=== PATIENT | male | born 1970 | race Two or more races ===

== ENCOUNTER 2023-11-06 13:41 | Inpatient (IN) | payer MEDICAID ==
--- NOTE | 2023-11-06 15:18 | ED ---
General Adult HPI - General Source: patient, family, RN notes reviewed Mode of arrival: ambulatory Limitations: no limitations <César Serrano - Last Filed: 11/06/23 16:16> - History of Present Illness -: year(s) Consistency: constant Improves with: none Worsens with: none Associated Symptoms: denies other symptoms Treatments Prior to Arrival: none <Felix Bravo - Last Filed: 11/06/23 18:03> - General Chief complaint: Psychiatric Symptoms Stated complaint: Mental health Time Seen by Provider: 11/06/23 14:53 - History of Present Illness Initial comments: Patient 53-year-old male presented to the emergency room today with a chief complaint of hallucinations. Patient does admit that he was placed in half-way for 21 days. He was on Suboxone he was being treated for withdrawal symptoms. He does have a history of bipolar. He states he was following with [facility]. He states his therapist is currently in the process of a move. Patient states he is not talked to his therapist in over a month. He does admit that while he was in half-way he started having some hallucinations. He states that they placed him in to a 23-hour confinement per day. He states that he got home today his fiance is at bedside who states that she has noticed some increased "twitches. States that seems like he is sometimes coherent and other times seems to space out. Patient does admit that he had some hallucinations. He gives an example that he knows that he is here in the hospital but he is thoughts that his fiance who is sitting next to him is gone out to dinner. He states he realizes needs hallucinations or not real when he stops to think about. Patient denies any suicidal or homicidal thoughts or plans. He denies any other complaints or any other symptoms. Patient denies any recent fever, chills, shortness of breath, chest pain, back pain, abdominal pain, nausea or vomiting, headaches or visual changes, or any other complaints. (César Serrano) This is a 53 male to ER for evaluation of psychiatric illness (Felix Bravo) - Related Data Home Medications Medication Instructions Recorded Confirmed Buprenorphine HCl/Naloxone HCl 0.5 - 1 film SL BID 11/06/23 11/06/23 [Suboxone 8 mg-2 mg Sl Film] Allergies Allergy/AdvReac Type Severity Reaction Status Date / Time No Known Allergies Allergy Verified 11/06/23 17:38 Review of Systems ROS Other: All systems not noted in ROS Statement are negative. <ZachCésar - Last Filed: 11/06/23 16:16> ROS Other: All systems not noted in ROS Statement are negative. <Felix Bravo - Last Filed: 11/06/23 18:03> ROS Statement: Those systems with pertinent positive or pertinent negative responses have been documented in the HPI. Past Medical History Past Medical History: No Reported History Past Surgical History: No Surgical Hx Reported Past Psychological History: No Psychological Hx Reported Smoking Status: Current some day smoker Past Drug Use History: Opiates <ZachCésar - Last Filed: 11/06/23 16:16> General Exam Limitations: no limitations <ZachCésar - Last Filed: 11/06/23 16:16> General appearance: alert, in no apparent distress Head exam: Present: atraumatic, normocephalic, normal inspection Eye exam: Present: normal appearance, PERRL, EOMI. Absent: scleral icterus, conjunctival injection, periorbital swelling ENT exam: Present: normal exam, mucous membranes moist Neck exam: Present: normal inspection. Absent: tenderness, meningismus, lymphadenopathy Respiratory exam: Present: normal lung sounds bilaterally. Absent: respiratory distress, wheezes, rales, rhonchi, stridor Cardiovascular Exam: Present: regular rate, normal rhythm, normal heart sounds. Absent: systolic murmur, diastolic murmur, rubs, gallop, clicks GI/Abdominal exam: Present: soft, normal bowel sounds. Absent: distended, tenderness, guarding, rebound, rigid Extremities exam: Present: normal inspection, full ROM, normal capillary refill. Absent: tenderness, pedal edema, joint swelling, calf tenderness Back exam: Present: normal inspection Neurological exam: Present: alert, oriented X3, CN II-XII intact Psychiatric exam: Present: normal affect, normal mood Skin exam: Present: warm, dry, intact, normal color. Absent: rash <Felix Bravo - Last Filed: 11/06/23 18:03> - General Exam Comments Initial Comments: General: The patient is awake and alert, in no distress, and does not appear acutely ill. Eye: Extra-ocular movements are intact. There is normal conjunctiva bilaterally . No signs of icterus. Ears, nose, mouth and throat: There are moist mucous membranes and no oral lesions. Neck: The neck is supple, there is no tenderness or JVD. Cardiovascular: There is a regular rate and rhythm. No murmur, rub or gallop is appreciated. Respiratory: Lungs are clear to auscultation, respirations are non-labored, breath sounds are equal. Musculoskeletal: Normal ROM, no tenderness. Neurological: A&O x 3. CN II-XII intact, There are no obvious motor or sensory deficits. Coordination appears grossly intact. Speech is normal. Skin: Skin is warm and dry and no rashes or lesions are noted. Psychiatric: Cooperative, appropriate mood & affect, normal judgment. (César Serrano) Course <Felix Bravo - Last Filed: 11/06/23 18:03> Vital Signs 11/06/23 13:52 Temperature 98.2 F Pulse Rate 90 Respiratory 16 Rate Blood Pressure 122/77 O2 Sat by Pulse 97 Oximetry - Reevaluation(s) Reevaluation #1: 11/06/23 18:02 Medical records reviewed (Felix Bravo) Reevaluation #2: 11/06/23 18:03 Medical clear for psychiatric evaluation (Felix Bravo) Medical Decision Making <César Serrano - Last Filed: 11/06/23 16:16> <Felix Bravo - Last Filed: 11/06/23 18:03> - Medical Decision Making History was obtained from patient/Nurse/Family/ Initial assessment and chief complaint: Hallucinations needing psychiatric evaluation Chronic conditions affecting care: Bipolar Social determinants affecting care: None 1600: 53-year-old male presented to the emergency room today with a chief complaint of having hallucinations. Patient presented today wanting psychiatric evaluation. He does admit that he does follow with [facility]. He has not seen his therapist in over a month. States prior to going to half-way he was not on any meds for his bipolar. He states he was taking Suboxone. Patient has been medically cleared and currently awaiting psychiatric eval. discussed and signed out to attending physician Dr. Bravo, at this time. (César Serrano) 53 male will be admitted for psychiatric evaluation (Felix Bravo) - Lab Data Lab Results 11/06/23 Range/Units 15:32 Urine Opiates Screen Not Detected (NotDetected) Ur Oxycodone Screen Not Detected (NotDetected) Urine Methadone Screen Not Detected (NotDetected) Ur Barbiturates Screen Not Detected (NotDetected) U Tricyclic Antidepress Not Detected (NotDetected) Ur Phencyclidine Scrn Not Detected (NotDetected) Ur Amphetamines Screen Not Detected (NotDetected) U Methamphetamines Scrn Not Detected (NotDetected) U Benzodiazepines Scrn Not Detected (NotDetected) Urine Cocaine Screen Not Detected (NotDetected) U Marijuana (THC) Screen Detected H (NotDetected) Disposition <César Serrano - Last Filed: 11/06/23 16:16> Is patient prescribed a controlled substance at d/c from ED?: No <Felix Bravo - Last Filed: 11/06/23 18:03> Clinical Impression: Bipolar disorder, Psychosis, Acute psychosis Disposition: TRANSFER TO PSYCH HOSP/UNIT Condition: Fair Referrals: Bird Sosa MD [Primary Care Provider] - 1-2 days
[2023-11-06 16:11] LABS: Amphetamine Screen,Urine Not Detected (NotDetected); Barbiturate Screen,Urine Not Detected (NotDetected); Benzodiazepines Screen,Urine Not Detected (NotDetected); Cocaine Screen,Urine Not Detected (NotDetected); Methadone Screen, Urine Not Detected (NotDetected); Opiate Screen,Urine Not Detected (NotDetected); Oxycodone Screen, Urine Not Detected (NotDetected); Phencyclidine Screen,Urine Not Detected (NotDetected); Tricyclic Antidepressant,Urine Not Detected (NotDetected); Urn Cannabinoid Scrn Detected (NotDetected)
[2023-11-06] MEDS ORDERED: LORazepam 2 MG/ML INJ IM PRN (22:14)
[2023-11-06] MEDS ORDERED: HALOPERIDOL LACTATE 5 MG/ML 1 ML VIAL IM PRN (22:14)
[2023-11-06] MEDS ORDERED: MAG HYDROX/AL HYDROX/SIMETH 30 ML CUP PO PRN (22:14)
[2023-11-06] MEDS ORDERED: MAGNESIUM HYDROXIDE 2,400 MG/30 ML CUP PO PRN (22:14)
[2023-11-06] MEDS: haloperidoL 5 MG TAB PO PRN (23:29)
[2023-11-06] MEDS: LORazepam 1 MG TAB PO PRN (23:29)
[2023-11-07 08:00] LABS: Amorphous Sediment,Urine Many /hpf; Appearance,Urine Turbid (Clear); Bilirubin,Urine Negative (Negative); Blood,Urine Negative (Negative); Calcium Oxalate Crystals,Urine Occasional /hpf; Color,Urine Yellow; Glucose,Urine (UA) Negative (Negative); Ketones,Urine Negative (Negative); Leukocyte Esterase,Urine Negative (Negative); Mucus,Urine Many /hpf; Nitrite,Urine Negative (Negative); Protein,Urine Trace (Negative); Urobilinogen,Urine <2.0 mg/dL (<2.0); WBC,Urine 1 /hpf (0-5)
[2023-11-07 08:13] LABS: ALT 24 U/L (4-49); AST 19 U/L (17-59); African American GFR (CKD) >90 (>60 ml/min/1.73 sqM); Albumin 3.3 g/dL (3.5-5.0); Alkaline Phosphatase 83 U/L (38-126); Anion Gap 6 mmol/L; Blood Urea Nitrogen 9 mg/dL (9-20); Calcium 8.3 mg/dL (8.4-10.2); Carbon Dioxide 28 mmol/L (22-30); Chloride 106 mmol/L (98-107); Glucose 98 mg/dL (74-99); Non-African American GFR(CKD) >90 (>60 ml/min/1.73 sqM); Potassium 3.4 mmol/L (3.5-5.1); Sodium 140 mmol/L (137-145); Total Bilirubin 0.5 mg/dL (0.2-1.3); Total Protein 6.2 g/dL (6.3-8.2)
[2023-11-07 08:18] LABS: Basophils % (A) 1 %; Eosinophils % (A) 0 %; HCT 37.2 % (39.0-53.0); HGB 12.7 gm/dL (13.0-17.5); Lymphocytes # (A) 2.9 k/uL (1.0-4.8); Lymphocytes % (A) 36 %; MCH 29.1 pg (25.0-35.0); MCHC 34.1 g/dL (31.0-37.0); MCV 85.5 fL (80.0-100.0); Mean Platelet Volume 7.4; Monocytes # (A) 0.5 k/uL (0-1.0); Monocytes % (A) 6 %; Neutrophils # (A) 4.4 k/uL (1.3-7.7); Neutrophils % (A) 56 %; Platelet Count 433 k/uL (150-450); RBC 4.35 m/uL (4.30-5.90); RDW 13.3 % (11.5-15.5); WBC 7.9 k/uL (3.8-10.6)
[2023-11-07] MEDS: ACETAMINOPHEN TAB 325 MG TAB PO PRN (09:30)
[2023-11-07] MEDS: NICOTINE 14MG/24HR PATCH TRANSDERM SCH (09:37)
--- NOTE | 2023-11-07 13:16 | P.HP ---
Psychiatric H&P - . H&P Date: 11/07/23 History & Physical: Allergies Allergy/AdvReac Type Severity Reaction Status Date / Time No Known Allergies Allergy Verified 11/06/23 17:38 Vital Signs Temp 98.0 F 11/06/23 23:20 Pulse 88 11/07/23 09:38 Resp 20 11/07/23 09:38 BP 142/105 11/07/23 09:38 Pulse Ox 98 11/06/23 23:20 FiO2 Intake & Output 11/06/23 11/07/23 11/07/23 18:59 06:59 18:59 Weight 86.183 kg 79.577 kg Laboratory Last Values WBC 7.9 k/uL (3.8-10.6) 11/07/23 07:45 RBC 4.35 m/uL (4.30-5.90) 11/07/23 07:45 Hgb 12.7 gm/dL (13.0-17.5) L 11/07/23 07:45 Hct 37.2 % (39.0-53.0) L 11/07/23 07:45 MCV 85.5 fL (80.0-100.0) 11/07/23 07:45 MCH 29.1 pg (25.0-35.0) 11/07/23 07:45 MCHC 34.1 g/dL (31.0-37.0) 11/07/23 07:45 RDW 13.3 % (11.5-15.5) 11/07/23 07:45 Plt Count 433 k/uL (150-450) 11/07/23 07:45 MPV 7.4 11/07/23 07:45 Neutrophils % 56 % 11/07/23 07:45 Lymphocytes % 36 % 11/07/23 07:45 Monocytes % 6 % 11/07/23 07:45 Eosinophils % 0 % 11/07/23 07:45 Basophils % 1 % 11/07/23 07:45 Neutrophils # 4.4 k/uL (1.3-7.7) 11/07/23 07:45 Lymphocytes # 2.9 k/uL (1.0-4.8) 11/07/23 07:45 Monocytes # 0.5 k/uL (0-1.0) 11/07/23 07:45 Eosinophils # 0.0 k/uL (0-0.7) 11/07/23 07:45 Basophils # 0.0 k/uL (0-0.2) 11/07/23 07:45 Sodium 140 mmol/L (137-145) 11/07/23 07:45 Potassium 3.4 mmol/L (3.5-5.1) L 11/07/23 07:45 Chloride 106 mmol/L (98-107) 11/07/23 07:45 Carbon Dioxide 28 mmol/L (22-30) 11/07/23 07:45 Anion Gap 6 mmol/L 11/07/23 07:45 BUN 9 mg/dL (9-20) 11/07/23 07:45 Creatinine 0.57 mg/dL (0.66-1.25) L 11/07/23 07:45 Est GFR (CKD-EPI)AfAm >90 (>60 ml/min/1.73 sqM) 11/07/23 07:45 Est GFR (CKD-EPI)NonAf >90 (>60 ml/min/1.73 sqM) 11/07/23 07:45 Glucose 98 mg/dL (74-99) 11/07/23 07:45 Calcium 8.3 mg/dL (8.4-10.2) L 11/07/23 07:45 Total Bilirubin 0.5 mg/dL (0.2-1.3) 11/07/23 07:45 AST 19 U/L (17-59) 11/07/23 07:45 ALT 24 U/L (4-49) 11/07/23 07:45 Alkaline Phosphatase 83 U/L (38-126) 11/07/23 07:45 Total Protein 6.2 g/dL (6.3-8.2) L 11/07/23 07:45 Albumin 3.3 g/dL (3.5-5.0) L 11/07/23 07:45 TSH 0.967 mIU/L (0.465-4.680) 11/07/23 07:45 Urine Color Yellow 11/06/23 15:32 Urine Appearance Turbid (Clear) 11/06/23 15:32 Urine pH 5.0 (5.0-8.0) 11/06/23 15:32 Ur Specific [place] 1.030 (1.001-1.035) 11/06/23 15:32 Urine Protein Trace (Negative) H 11/06/23 15:32 Urine Glucose (UA) Negative (Negative) 11/06/23 15:32 Urine Ketones Negative (Negative) 11/06/23 15:32 Urine Blood Negative (Negative) 11/06/23 15:32 Urine Nitrite Negative (Negative) 11/06/23 15:32 Urine Bilirubin Negative (Negative) 11/06/23 15:32 Urine Urobilinogen <2.0 mg/dL (<2.0) 11/06/23 15:32 Ur Leukocyte Esterase Negative (Negative) 11/06/23 15:32 Urine WBC 1 /hpf (0-5) 11/06/23 15:32 Calcium Oxalate Crystal Occasional /hpf (None) H 11/06/23 15:32 Amorphous Sediment Many /hpf (None) H 11/06/23 15:32 Urine Mucus Many /hpf (None) H 11/06/23 15:32 Urine Opiates Screen Not Detected (NotDetected) 11/06/23 15:32 Ur Oxycodone Screen Not Detected (NotDetected) 11/06/23 15:32 Urine Methadone Screen Not Detected (NotDetected) 11/06/23 15:32 Ur Barbiturates Screen Not Detected (NotDetected) 11/06/23 15:32 U Tricyclic Antidepress Not Detected (NotDetected) 11/06/23 15:32 Ur Phencyclidine Scrn Not Detected (NotDetected) 11/06/23 15:32 Ur Amphetamines Screen Not Detected (NotDetected) 11/06/23 15:32 U Methamphetamines Scrn Not Detected (NotDetected) 11/06/23 15:32 U Benzodiazepines Scrn Not Detected (NotDetected) 11/06/23 15:32 Urine Cocaine Screen Not Detected (NotDetected) 11/06/23 15:32 U Marijuana (THC) Screen Detected (NotDetected) H 11/06/23 15:32 SARS-CoV-2 (PCR) Not Detected (Not Detectd) 11/06/23 21:12 11/07/23 11:36 IDENTIFYING DATA: Patient is a 53 year old white male, appears stated age. Lives with sister in a house. HPI: Patient presented to the hospital 11/06 for hallucinations. Pt reports hallucinations began while in alf. Pt was recently released after 21 days. Pt claims to be prescribed Suboxone. Pt reports history of bipolar disorder. UDS positive for cannabis. Patient was seen today in the hallway sitting against the wall. Patient was initially directable to speak to marketing copywriter in the office. Patient answered only some questions, he correctly knew his name, he believed that he was in "rehab" in [place]. He believes that today was November 08, 2022. He appears to be fairly confused during the interview. He closes eyes several times and was speaking to himself. He was difficult to redirect during the conversation. Very poor insight poor judgment. He was bizarre and disorganized in his thoughts. Thought blocking. Patient denies any suicidal or homicidal ideations intent or plan. At this time patient denies any auditory or visual hallucinations. Patient was positive for marijuana in his drug screen. He was responding to internal stimuli. Patient was unable to give further past psychiatric history or social history due to his mental status. PAST PSYCHIATRIC HISTORY: Patient states that he has a history of bipolar disorder. Prior hospitalizations unknown. PMH: As per ER note. ALLERGIES: as per EMR CHEMICAL DEPENDENCY HISTORY: as per HPI FAMILY PSYCHIATRIC/SUBSTANCE USE HISTORY: Unable to obtain SOCIAL HISTORY: Unable to obtain MENTAL STATUS EXAM: General Appearance: Patient appears to be stated age is alert, directable, and attempts to cooperate. Patient appears to have disheveled hygiene and grooming. Behavior: Patient is seated with some agitated behavior. Appears to be confused and difficult to redirect Speech: Patient's speech is hesitant and soft. Mood/Affect: Patient reports their mood is affect is congruent and constricted. Suicidality/Homicidality: Patient denies having any homicidal ideation intent or plan. Denies any suicidal ideations intent or plan. Perceptions: Patient denies any visual hallucinations and denies any auditory hallucinations Though content/process: cocreate, vague, bizarre Memory and concentration: AOX1, does not know today's date or year, does not know where he is, he only knows his name, fairly confused, unable to follow most directions. Judgment and insight: poor STRENGTHS/WEAKNESSES: strength is that patient is resilient. Weakness is that patient has poor judgment and is impulsive INTELLECT: Average IMPRESSIONS: psychosis unspecified, r/o secondary to substance withdrawal Cannabis use disorder opioid use disorder, currently on maintenance therapy Rule out alcohol use disorder/withdrawal PLAN: -Patient is admitted under involuntary status to MHU for stabilization of psychiatric symptoms and safety. Patient has not signed adult voluntary form and medication consent and is placed in patient's chart. A second certification was completed and along with petition will be filed for court. -Medications : -Begin Haldol and Ativan PRN for agitation/aggression -Begin Rispridol 1mg qhs for psychosis -CIWA protocol with Ativan PRN for ETOH withdrawal -Will resume pt's home dosage of Suboxone for opioid dependence. -Internal Medicine consult to perform medical evaluation and physical. -SW on board for discharge planning. Encourage patient to participate in groups to work on coping skills. Will await deferral and court date. 11/07/23 12:07 11/07/23 13:11
[2023-11-07] MEDS: BUPRENORPHINE-NALOX 8-2 MG TAB 1 EACH TAB.SUBL SL SCH (14:20)
[2023-11-07] MEDS: haloperidoL 5 MG TAB PO ONE (14:20)
[2023-11-07] MEDS ORDERED: LORazepam 1 MG TAB PO PRN ×2 (16:00)
[2023-11-07] MEDS: risperiDONE 1 MG TAB PO SCH (21:18)
--- NOTE | 2023-11-08 12:10 | P.PN ---
Progress Note - Text Progress Note Date: 11/08/23 Interval History: Patient was seen today wandering the hallways and was agreeable to speak to wr iter in the office today. he states that he does not remember much from yesterday. explained that he was arrested about a week ago for shoplifting and also had a warrant out for arrest for driving with a suspended license. claims that at [facility] he began hearing voices and "seeing things" while in [facility]. Patient appeared to be more coherent today, more logical. He did appear to be fairly frustrated that he was in the hospital and was fairly focused on discharge. Welt Slasher attempted to explain the patient that he is currently involuntarily admitted and will need to await a deferral meeting with his transactional attorney, patient began being upset about this and asked marketing copywriter several times to explain to him why he is currently involuntary. He states that "I brought myself in here". Patient does not recall acting bizarre, psychotic and confused yesterday and needed to be redirected and escorted from the office. He has poor insight and judgment, has been taking his medications however. States that he is doing a bit better with regards to his mood and anxiety. He claims that he slept fairly last night. At this time he is denying any changes in his appetite. Denies any auditory or visual hallucinations. Denies any suicidal homicidal ideations intent or plan. MENTAL STATUS EXAM: General Appearance: Patient appears to be stated age is alert, directable, and attempts to cooperate. Patient appears to have oddly improving hygiene and grooming. Behavior: Patient is seated, Appears to be less confused today, somewhat argumentative Speech: Patient's speech is irritable tone, direct, fluent Mood/Affect: Patient reports their mood is mildly improving, affect is congruent and constricted. Suicidality/Homicidality: Patient denies having any homicidal ideation intent or plan. Denies any suicidal ideations intent or plan. Perceptions: Patient denies any visual hallucinations and denies any auditory hallucinations Though content/process: cocreate, vague, focused on discharge, minimizing his need for hospitalization. Memory and concentration: AOX3, improved attention span. Judgment and insight: poor, improving mildly IMPRESSIONS: psychosis unspecified, r/o secondary to substance withdrawal Cannabis use disorder opioid use disorder, currently on maintenance therapy benzodiazepine use disorder, in withdrawal PLAN: -Patient is admitted under involuntary status to MHU for stabilization of psychiatric symptoms and safety. Patient has not signed adult voluntary form and medication consent and is placed in patient's chart. -Medications : -Haldol and Ativan PRN for agitation/aggression -increase Rispridol 1mg bid for psychosis -CIWA protocol with Ativan PRN for BZD withdrawal -continue home dosage of Suboxone for opioid dependence -Internal Medicine consult to perform medical evaluation and physical -SW on board for discharge planning. Encourage patient to participate in groups to work on coping skills. Will await deferral and court date.
[2023-11-08] MEDS: risperiDONE 1 MG TAB PO SCH (12:55)
--- NOTE | 2023-11-09 11:36 | P.PN ---
Progress Note - Text Progress Note Date: 11/09/23 Interval History: Patient was seen today in his room and wandering hallway. Patient was agreeable to speak to video game script writer today. He appeared to be more calm today however continues to state that he does not understand why he needs to speak to an asbestos surveyor. He was asking about getting a potential CT scan of his head because of a previous TBI. He states that his mood is improving, continues to have anxiety during the day. States that he has been trying to keep busy on the unit. He claims that he was having difficulty sleeping last night, continues to hear voices at times however states that they are improving. He has poor insight and judgment, has been taking his medications however, this is improving. At this time he is denying any changes in his appetite. Denies any auditory or visual hallucinations. Denies any suicidal homicidal ideations intent or plan. MENTAL STATUS EXAM: General Appearance: Patient appears to be stated age is alert, directable, and attempts to cooperate. Patient appears to have mildly improving hygiene and grooming. Behavior: Patient is seated, Appears to be more directable and cooperative today Speech: Patient's speech is irritable, fluent Mood/Affect: Patient reports their mood is mildly improving, affect is congruent and constricted. Improving mildly Suicidality/Homicidality: Patient denies having any homicidal ideation intent or plan. Denies any suicidal ideations intent or plan. Perceptions: Patient denies any visual hallucinations and claims that the auditory hallucinations have been improving Though content/process: cocreate, vague, focused on discharge, minimizing his need for hospitalization. Memory and concentration: AOX3, improved attention span. Judgment and insight: poor, improving mildly IMPRESSIONS: psychosis unspecified, r/o secondary to substance withdrawal Cannabis use disorder opioid use disorder, currently on maintenance therapy benzodiazepine use disorder, in withdrawal PLAN: -Patient is admitted under involuntary status to [facility]HU for stabilization of psychiatric symptoms and safety. Patient has not signed adult voluntary form and medication consent and is placed in patient's chart. -Medications : -Haldol and Ativan PRN for agitation/aggression -Rispridol 1mg bid for psychosis -Added Remeron 15 mg nightly for sleep/mood/anxiety. -CIWA protocol with Ativan PRN for BZD withdrawal, likely discontinue tomorrow if patient is doing well. -continue home dosage of Suboxone for opioid dependence -Internal Medicine consult to perform medical evaluation and physical -SW on board for discharge planning. Encourage patient to participate in groups to work on coping skills. Will await deferral and court date. Possible discharge Friday versus Friday if patient is improving and has deferred.
[2023-11-09] MEDS: MIRTAZAPINE 15 MG TAB PO SCH (20:11)
--- NOTE | 2023-11-09 23:39 | P.MDCNMH ---
History of Present Illness H&P Date: 11/09/23 Chief Complaint: Medical evaluation 54-year-old male with polysubstance abuse Patient coming in for evaluation secondary to hallucinations Patient admits to being in custodial and lost to follow-up with his therapist, he stopped using his drugs and he believes he was withdrawing and going into hallucinations. Upon release from custodial his family was concerned regarding his behavior and decided to bring him in for evaluation. His hallucinations patient describes them as thoughts and visual denies being suicidal or homicidal. He does not realize that these are hallucinations until someone calls him out about them Patient otherwise denies any headache visual changes hearing changes denies any focal neurodeficits denies any head injury denies any chest pain trouble breat andressa denies any fevers chills coughing is feeling fine otherwise. she denies any fever, chills, cough, sore throat, chest pain , trouble breathing , nausea , vomiting, abd pain , changes in urinary or bowel habits. she denies tobacco smoking, she claims that she quit meth 3 months ago , and alcohol 1 year. review of systems Pertinent positives as noted in HPI. All other systems were reviewed and are negative on exam Constitutional: No acute distress, conversant, pleasant Eyes: Anicteric sclerae, moist conjunctiva, Pupils equal round reactive to light ENMT: NC/AT Oropharynx clear, no erythema, or exudates Lungs: Clear to auscultation Clear to percussion Normal respiratory effort, no accessory muscle use Cardiovascular: Heart regular in rate and rhythm, No murmurs, gallops, or rubs No peripheral edema Abdominal: Soft Nontender, no guarding, rebound or rigidity Abdomen moving with respiration Normoactive bowel sounds Extremities: No digital cyanosis No clubbing Pedal pulses intact and symmetrical Radial pulses intact and symmetrical No calf tenderness Psychiatric: Alert and oriented to person, place and time Appropriate affect fair judgement Neuro Muscles Strength 5/5 in all 4 extremities Past Medical History Past Medical History: No Reported History History of Any Multi-Drug Resistant Organisms: None Reported Past Surgical History: Orthopedic Surgery Additional Past Surgical History / Comment(s): Hx R arm surgery Past Anesthesia/Blood Transfusion Reactions: No Reported Reaction Smoking Status: Current some day smoker - Past Family History Mother Family Medical History: Cancer Additional Family Medical History / Comment(s): Hx Breast cancer Medications and Allergies Home Medications Medication Instructions Recorded Confirmed Type Buprenorphine HCl/Naloxone HCl 0.5 - 1 film SL BID 11/06/23 11/06/23 History [Suboxone 8 mg-2 mg Sl Film] Allergies Allergy/AdvReac Type Severity Reaction Status Date / Time No Known Allergies Allergy Verified 11/06/23 17:38 Physical Exam Vitals: Vital Signs Pulse BP 11/09/23 06:18 98 122/73 Intake and Output 11/09/23 11/09/23 11/10/23 14:59 22:59 06:59 Other: Weight 82.6 kg Cranial Nerve Examination - Cranial Nerves Cranial Nerve II- Optic: Intact Cranial Nerve III- Oculomotor: Intact Cranial Nerve IV- Trochlear: Intact Cranial Nerve V- Trigeminal: Intact Cranial Nerve - Abducens: Intact Cranial Nerve VII- Facial: Intact Cranial Nerve VIII- Auditory: Intact Cranial Nerve IX- Glossopharyngeal: Intact Cranial Nerve X- Vagus: Intact Cranial Nerve XI- Accessory: Intact Cranial Nerve XII- Hypoglossal: Intact Results CBC & Chem 7: 11/07/23 07:45 11/07/23 07:45 Assessment and Plan Assessment: Hallucinations Polysubstance abuse Bipolar disorder Management per psych Stable from medical standpoint blood work reviewed showing white count 7.9 hemoglobin 12.7 Sodium 140 potassium 3.4 BUN 9 creatinine 0.5 Thank you for this consultation
--- NOTE | 2023-11-10 10:28 | P.PN ---
Progress Note - Text Progress Note Date: 11/10/23 Interval History: Patient was seen today in his room. Patient was agreeable to speak to greeting card writer today. Patient claims that he is doing a bit better. He claims that his mood and anxiety have been improving. He continues to minimize most of his symptoms and mainly focused on discharge. He has been taking his medications, states that he slept about 5 or 6 hours last night. We spoke about increasing the Remeron. He continues to have somewhat superficial insight about his drug use and states that he might consider rehab. Not been going to many groups. States that he has been trying to keep busy on the unit. States that he is not hearing voices today. Claims that the respite all has been helping with his anxiety. At this time he is denying any changes in his appetite. Denies any auditory or visual hallucinations. Denies any suicidal homicidal ideations intent or plan. MENTAL STATUS EXAM: General Appearance: Patient appears to be stated age is alert, directable, and attempts to cooperate. Patient appears to have mildly improving hygiene and grooming. Behavior: Patient is seated, Appears to be more directable and cooperative today, less irritable. Speech: Patient's speech is less irritable, fluent Mood/Affect: Patient reports their mood is mildly improving, affect is congruent and constricted. Improving mildly Suicidality/Homicidality: Patient denies having any homicidal ideation intent or plan. Denies any suicidal ideations intent or plan. Perceptions: Patient denies any visual hallucinations and denies any auditory hallucinations Though content/process: vague, focused on discharge, more goal oriented today Memory and concentration: AOX3, improved attention span. Judgment and insight: improving mildly IMPRESSIONS: psychosis unspecified, r/o secondary to substance withdrawal Cannabis use disorder opioid use disorder, currently on maintenance therapy benzodiazepine use disorder, in withdrawal PLAN: -Patient is admitted under involuntary status to MHU for stabilization of psychiatric symptoms and safety. Patient has not signed adult voluntary form and medication consent and is placed in patient's chart. -Medications : -Haldol and Ativan PRN for agitation/aggression -Rispridol 1mg bid for psychosis -Increased Remeron 30 mg nightly for sleep/mood/anxiety. -continue home dosage of Suboxone for opioid dependence -SW on board for discharge planning. Encourage patient to participate in groups to work on coping skills. Will await deferral and court date. Possible discharge Friday versus Friday if patient is improving and has deferred.
[2023-11-10] MEDS: MIRTAZAPINE 15 MG TAB PO SCH (20:49)
--- NOTE | 2023-11-11 10:04 | P.PN ---
Progress Note - Text Progress Note Date: 11/11/23 Interval History: Patient was seen today in the hallway, and agreeable to speak with television script writer in the office. Patient states that he is doing a better. He claims that his mood and anxiety have been improving. He states that he deferred with his grade and center marker yesterday, and agreeable to the treatment plan. He has been taking his medications, states that he slept well last night. He is going to groups. States that he has been trying to keep busy on the unit. States that he is not hearing voices today. Denies any side effects from the medication. At this time he is denying any changes in his appetite. Spoke with patient about d/c, and explained that he may be discharged tomorrow if he continues to improve. Denies any auditory or visual hallucinations. Denies any suicidal homicidal ideations intent or plan. MENTAL STATUS EXAM: General Appearance: Patient appears to be stated age is alert, directable, and attempts to cooperate. Patient appears to have mildly improving hygiene and grooming. Behavior: Patient is seated, Appears to be more directable and cooperative Speech: Patient's speech is fluent and nonpressured Mood/Affect: Patient reports their mood is mildly improving, affect is congruent and constricted. Improving Suicidality/Homicidality: Patient denies having any homicidal ideation intent or plan. Denies any suicidal ideations intent or plan. Perceptions: Patient denies any visual hallucinations and denies any auditory hallucinations Though content/process:focused on discharge, more goal oriented today Memory and concentration: AOX3, improved attention span. Judgment and insight: improving mildly IMPRESSIONS: psychosis unspecified, r/o secondary to substance withdrawal Cannabis use disorder opioid use disorder, currently on maintenance therapy benzodiazepine use disorder, in withdrawal PLAN: -Patient is admitted under involuntary status to MHU for stabilization of psychiatric symptoms and safety. Patient has not signed adult voluntary form and medication consent and is placed in patient's chart. -Medications : Haldol and Ativan PRN for agitation/aggression, change Rispridol 2mg qhs for psychosis to avoid daytime sedation, Remeron 30 mg nightly for sleep/mood/anxiety. -continue home dosage of Suboxone for opioid dependence -SW on board for discharge planning. Encourage patient to participate in groups to work on coping skills. Patient deferred with grade and center marker. Likely discharge tomorrow if patient continues to improve.
[2023-11-11] MEDS: risperiDONE 2 MG TAB PO SCH (22:13)
[2023-11-12 07:35] VITALS: BP 145/74; PULSE 103; RESP 16; TEMP 98.2
--- NOTE | 2023-11-12 11:11 | P.DS ---
Providers Date of admission: 11/06/23 22:12 Expected date of discharge: 11/12/23 Attending physician: Jose R Cooney MD Primary care physician: Bird Sosa - Discharge Diagnosis(es) (1) Unspecified psychosis Current Visit: Yes Status: Acute Priority: High (2) Cannabis use disorder Current Visit: Yes Status: Acute Priority: Medium (3) Opioid use disorder Current Visit: Yes Status: Acute Priority: High (4) Benzodiazepine dependence Current Visit: Yes Status: Acute Priority: High Hospital Course: Admission HPI: Admission note was completed by typewriter assembly and parts inspector "Patient presented to the hospital 11/06 for hallucinations. Pt reports hallucinations began while in [facility]. Pt was recently released after 21 days. Pt claims to be prescribed Suboxone. Pt reports history of bipolar disorder. UDS positive for cannabis. Patient was seen today in the hallway sitting against the wall. Patient was initially directable to speak to typewriter assembly and parts inspector in the office. Patient answered only some questions, he correctly knew his name, he believed that he was in "rehab" in [place]. He believes that today was November 08, 2022. He appears to be fairly confused during the interview. He closes eyes several times and was speaking to himself. He was difficult to redirect during the conversation. Very poor insight poor judgment. He was bizarre and disorganized in his thoughts. Thought blocking. Patient denies any suicidal or homicidal ideations intent or plan. At this time patient denies any auditory or visual hallucinations. Patient was positive for marijuana in his drug screen. He was responding to internal stimuli." Hospital course: Upon admission to the unit patient was admitted involuntarily on a petition and certificate and a second certificate was completed and faxed with the courts. Patient ended up signing a deferral with the electrician helper automotive and agreeing to treatment. Patient got along well with other patients on the unit and followed unit protocol. Patient was compliant with the medications and denied any side effects throughout hospital course. Patient was started on Risperdal and increased to a dose of 2 mg nightly for psychosis/mood stabilization, Remeron 30 mg nightly for sleep/mood/anxiety. Patient was resumed back on his home dose of Suboxone and twice daily for opiate dependence. Patient was monitored closely with [facility] protocol and as needed Ativan for benzodiazepine withdrawal. Patient spoke of his stressors and engaged in therapy both group and individual. Patient was also seen by medical team for history and physical exam. Throughout the course of the hospitalization patient gradually improved with regards to mo od, anxiety, psychosis/hallucinations, sleep and returned back to their baseline level of functioning. On the day of discharge patient denied any suicidal or homicidal ideations intent or plan denied any auditory or visual hallucinations. Patient endorsed wanting to live for his health and family. The patient denied any access to guns or weapons. Patient denied any paranoia and did not endorse any delusions. Patient does have a significant history of substance abuse and was counseled on abstaining from all substances including alcohol and marijuana. Patient was offered however declined inpatient substance-abuse rehab. Patient elected to do outpatient substance use treatment program through [facility]. Patient was also counseled on the medications and need for regular compliance and was encouraged to follow-up with their outpatient appointment for mental health and also for primary care. Prior to discharge a family meeting will be arranged by social media community manager to answer any questions and ensure safety upon discharge. Mental status exam: General Appearance: Patient appears to be stated age is alert, pleasant, and cooperative. Patient is in no acute distress and has improved hygiene and grooming Behavior: Patient is calmly seated without any agitated behavior. Speech: Patient's speech is fluent and nonpressured. Mood/Affect: Patient reports their mood is "good", affect is congruent and euthymic. Suicidality/Homicidality: Patient denies having any suicidal or homicidal ideation intent or plan. Perceptions: Patient denies any auditory or visual hallucinations. Though content/process: There is no evidence of any delusional thought content and thought process is linear and goal-directed. Memory and concentration: AOX3, grossly intact for the purposes of this session. Can spell "WORLD" backwards correctly. Judgment and insight: Chronically poor, however has improved with guarded prognosis Impression: psychosis unspecified, r/o secondary to substance withdrawal Cannabis use disorder opioid use disorder, currently on maintenance therapy Rule out alcohol use disorder/withdrawal Plan: -Continue with discharge today as patient has improved and stabilized psychiatrically and is not currently an imminent threat to himself and/or others. Patient will remain at chronically elevated risk for harm to self and/or others due to his impulsivity and substance abuse. -Continue medications: Remeron 30 mg nightly for sleep/mood/anxiety, Risperdal 2 mg nightly for psychosis/mood stabilization. Can continue with home dose of Suboxone and twice daily for opiate dependence. -Patient was counseled on the need for medication compliance and appropriate follow-up at mental health and also primary care for medical issues. Patient verbalized understanding and agreed. -Social work to arrange for and conduct family meeting to ensure safety upon discharge and answer any questions/concerns. Social work also to arrange for patients follow up appointments with [facility] for psychiatric care along with follow up with primary care provider. -Patient counseled on abstaining from recreational drugs and marijuana and alcohol. Was informed/educated on the adverse effects on their physical and mental health. Patient verbally agreed and understood. Patient was offered substance abuse treatment however declined at this time. -Patient was instructed to return to the hospital or seek immediate medical care if their psychiatric or medical symptoms do worsen or reoccur. Allergies Allergy/AdvReac Type Severity Reaction Status Date / Time No Known Allergies Allergy Verified 11/06/23 17:38 Laboratory Results WBC 7.9 k/uL (3.8-10.6) 11/07/23 07:45 RBC 4.35 m/uL (4.30-5.90) 11/07/23 07:45 Hgb 12.7 gm/dL (13.0-17.5) L 11/07/23 07:45 Hct 37.2 % (39.0-53.0) L 11/07/23 07:45 MCV 85.5 fL (80.0-100.0) 11/07/23 07:45 MCH 29.1 pg (25.0-35.0) 11/07/23 07:45 MCHC 34.1 g/dL (31.0-37.0) 11/07/23 07:45 RDW 13.3 % (11.5-15.5) 11/07/23 07:45 Plt Count 433 k/uL (150-450) 11/07/23 07:45 MPV 7.4 11/07/23 07:45 Neutrophils % 56 % 11/07/23 07:45 Lymphocytes % 36 % 11/07/23 07:45 Monocytes % 6 % 11/07/23 07:45 Eosinophils % 0 % 11/07/23 07:45 Basophils % 1 % 11/07/23 07:45 Neutrophils # 4.4 k/uL (1.3-7.7) 11/07/23 07:45 Lymphocytes # 2.9 k/uL (1.0-4.8) 11/07/23 07:45 Monocytes # 0.5 k/uL (0-1.0) 11/07/23 07:45 Eosinophils # 0.0 k/uL (0-0.7) 11/07/23 07:45 Basophils # 0.0 k/uL (0-0.2) 11/07/23 07:45 Sodium 140 mmol/L (137-145) 11/07/23 07:45 Potassium 3.4 mmol/L (3.5-5.1) L 11/07/23 07:45 Chloride 106 mmol/L (98-107) 11/07/23 07:45 Carbon Dioxide 28 mmol/L (22-30) 11/07/23 07:45 Anion Gap 6 mmol/L 11/07/23 07:45 BUN 9 mg/dL (9-20) 11/07/23 07:45 Creatinine 0.57 mg/dL (0.66-1.25) L 11/07/23 07:45 Est GFR (CKD-EPI)AfAm >90 (>60 ml/min/1.73 sqM) 11/07/23 07:45 Est GFR (CKD-EPI)NonAf >90 (>60 ml/min/1.73 sqM) 11/07/23 07:45 Glucose 98 mg/dL (74-99) 11/07/23 07:45 Calcium 8.3 mg/dL (8.4-10.2) L 11/07/23 07:45 Total Bilirubin 0.5 mg/dL (0.2-1.3) 11/07/23 07:45 AST 19 U/L (17-59) 11/07/23 07:45 ALT 24 U/L (4-49) 11/07/23 07:45 Alkaline Phosphatase 83 U/L (38-126) 11/07/23 07:45 Total Protein 6.2 g/dL (6.3-8.2) L 11/07/23 07:45 Albumin 3.3 g/dL (3.5-5.0) L 11/07/23 07:45 TSH 0.967 mIU/L (0.465-4.680) 11/07/23 07:45 Urine Color Yellow 11/06/23 15:32 Urine Appearance Turbid (Clear) 11/06/23 15:32 Urine pH 5.0 (5.0-8.0) 11/06/23 15:32 Ur Specific [place] 1.030 (1.001-1.035) 11/06/23 15:32 Urine Protein Trace (Negative) H 11/06/23 15:32 Urine Glucose (UA) Negative (Negative) 11/06/23 15:32 Urine Ketones Negative (Negative) 11/06/23 15:32 Urine Blood Negative (Negative) 11/06/23 15:32 Urine Nitrite Negative (Negative) 11/06/23 15:32 Urine Bilirubin Negative (Negative) 11/06/23 15:32 Urine Urobilinogen <2.0 mg/dL (<2.0) 11/06/23 15:32 Ur Leukocyte Esterase Negative (Negative) 11/06/23 15:32 Urine WBC 1 /hpf (0-5) 11/06/23 15:32 Calcium Oxalate Crystal Occasional /hpf (None) H 11/06/23 15:32 Amorphous Sediment Many /hpf (None) H 11/06/23 15:32 Urine Mucus Many /hpf (None) H 11/06/23 15:32 Urine Opiates Screen Not Detected (NotDetected) 11/06/23 15:32 Ur Oxycodone Screen Not Detected (NotDetected) 11/06/23 15:32 Urine Methadone Screen Not Detected (NotDetected) 11/06/23 15:32 Ur Barbiturates Screen Not Detected (NotDetected) 11/06/23 15:32 U Tricyclic Antidepress Not Detected (NotDetected) 11/06/23 15:32 Ur Phencyclidine Scrn Not Detected (NotDetected) 11/06/23 15:32 Ur Amphetamines Screen Not Detected (NotDetected) 11/06/23 15:32 U Methamphetamines Scrn Not Detected (NotDetected) 11/06/23 15:32 U Benzodiazepines Scrn Not Detected (NotDetected) 11/06/23 15:32 Urine Cocaine Screen Not Detected (NotDetected) 11/06/23 15:32 U Marijuana (THC) Screen Detected (NotDetected) H 11/06/23 15:32 SARS-CoV-2 (PCR) Not Detected (Not Detectd) 11/06/23 21:12 Vital Signs Temp 98.2 F 11/12/23 06:55 Pulse 103 H 11/12/23 06:55 Resp 16 11/12/23 06:55 BP 145/74 11/12/23 06:55 Pulse Ox 100 11/11/23 06:00 FiO2 Patient Condition at Discharge: Stable Plan - Discharge Summary Discharge Rx Participant: No New Discharge Prescriptions: New Mirtazapine [Remeron] 30 mg PO HS 30 Days #60 tab risperiDONE [RisperDAL] 2 mg PO HS 30 Days #30 tab Continue Buprenorphine HCl/Naloxone HCl [Suboxone 8 mg-2 mg Sl Film] 0.5 - 1 film SL BID Discharge Medication List Buprenorphine HCl/Naloxone HCl [Suboxone 8 mg-2 mg Sl Film] 0.5 - 1 film SL BID 11/06/23 [History] Mirtazapine [Remeron] 30 mg PO HS 30 Days #60 tab 11/12/23 [Rx] risperiDONE [RisperDAL] 2 mg PO HS 30 Days #30 tab 11/12/23 [Rx] Follow up Appointment(s)/Referral(s): Bird Sosa MD [Primary Care Provider] - 1-2 days Patient Instructions/Handouts: Psychotic Disorder (DC), Narcotic Use Disorder (DC) Activity/Diet/Wound Care/Special Instructions: Avoid the use of street drugs and alcohol. Take all medications as prescribed. When you are in need of refills on your medications, please contact your medical provider and/or outpatient psychiatrist/provider to have this done. Please go to your scheduled outpatient appointment for aftercare treatment. If symptoms return or become worse, call the crisis line at and/or go to the nearest emergency room for evaluation. National Suicide Hotline 988. Discharge Disposition: HOME SELF-CARE
== END 2023-11-12 11:48 | disposition home or self-care (01) | DRG 751 ==
LOC: EC 13:41 → 3MHU 22:12
PROVIDERS: ADMIT Psychiatry & Neurology Psychiatry; ATTEND Psychiatry & Neurology Psychiatry
DX: F29 Unspecified psychosis not due to a substance or known physiological condition (principal); F13.20 Sedative, hypnotic or anxiolytic dependence, uncomplicated; F12.10 Cannabis abuse, uncomplicated; F31.9 Bipolar disorder, unspecified; F11.20 Opioid dependence, uncomplicated; Z11.52 Encounter for screening for COVID-19; F41.9 Anxiety disorder, unspecified; F17.210 Nicotine dependence, cigarettes, uncomplicated; Z71.6 Tobacco abuse counseling; Z87.820 Personal history of traumatic brain injury; Z71.41 Alcohol abuse counseling and surveillance of alcoholic; Z71.51 Drug abuse counseling and surveillance of drug abuser
CPT/HCPCS: 80053; 80306; 81001; 82075; 84443; 85025; 87635; 99285

== ENCOUNTER 2024-05-06 06:47 | Emergency (ER) | payer OTHER ==
--- NOTE | 2024-05-06 07:01 | ED ---
Psych HPI - General Chief Complaint: Psychiatric Symptoms Stated Complaint: Mental Health Time Seen by Provider: 05/06/24 06:59 Source: patient, RN notes reviewed Mode of arrival: ambulatory Limitations: no limitations - History of Present Illness Initial Comments: This is a 54-year-old male who presents to the emergency department for psychiatric evaluation and withdrawal symptoms. States that he has been struggling to distinguish fantasy from reality and is hoping to get back on a medication regimen to straighten this out. He is also feeling very anxious. 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 About 2 months ago he was on Remeron and Risperdal, but does not believe that it was very effective. He does follow with [facility], but is hoping to see if he can start medication between now and his next appointment to help with his anxiety. Denies any suicidal or homicidal ideations. - Related Data Home Medications Medication Instructions Recorded Confirmed Buprenorphine HCl/Naloxone HCl 0.5 - 1 film SL BID 11/06/23 11/06/23 [Suboxone 8 mg-2 mg Sl Film] Previous Rx's Medication Instructions Recorded Mirtazapine [Remeron] 30 mg PO HS 30 Days #60 tab 11/12/23 risperiDONE [RisperDAL] 2 mg PO HS 30 Days #30 tab 11/12/23 hydrOXYzine HCL [Atarax] 50 - 100 mg PO Q4-6H PRN #20 tablet 05/06/24 Allergies Allergy/AdvReac Type Severity Reaction Status Date / Time No Known Allergies Allergy Verified 05/06/24 06:53 Review of Systems ROS Statement: Those systems with pertinent positive or pertinent negative responses have been documented in the HPI. ROS Other: All systems not noted in ROS Statement are negative. Past Medical History Past Medical History: No Reported History History of Any Multi-Drug Resistant Organisms: None Reported Past Surgical History: Orthopedic Surgery Additional Past Surgical History / Comment(s): Hx R arm surgery Past Anesthesia/Blood Transfusion Reactions: No Reported Reaction Past Psychological History: No Psychological Hx Reported Smoking Status: Current every day smoker Past Drug Use History: Methamphetamine, Prescription Drug Abuse - Past Family History Mother Family Medical History: Cancer Additional Family Medical History / Comment(s): Hx Breast cancer General Exam Limitations: no limitations General appearance: alert, in no apparent distress Head exam: Present: atraumatic, normocephalic, normal inspection Respiratory exam: Present: normal lung sounds bilaterally. Absent: respiratory distress, wheezes, rales, rhonchi, stridor Cardiovascular Exam: Present: regular rate, normal rhythm, normal heart sounds. Absent: systolic murmur, diastolic murmur, rubs, gallop, clicks Neurological exam: Present: alert, oriented X3, CN II-XII intact Psychiatric exam: Present: normal affect, normal mood Skin exam: Present: warm, dry, intact, normal color. Absent: rash Course Vital Signs 05/06/24 05/06/24 06:48 11:35 Temperature 98.5 F 98.0 F Pulse Rate 79 78 Respiratory 18 16 Rate Blood Pressure 119/74 134/83 O2 Sat by Pulse 100 98 Oximetry Medical Decision Making - Medical Decision Making This is a 54 year old male who presents to the emergency department for psychiatric evaluation. Was pt. sent in by a medical professional or institution? @ -No Did you speak to anyone other than the patient for history? @ -No Did you review nursing and triage notes? @ -Yes, and I agree, it is accurate with regards to the patient's symptoms. Were old charts reviewed? @ -No Differential Diagnosis? @ -Differential Mental Health Depression, anxiety, bipolar, psychosis, schizophrenia, borderline personality, situational depression, adjustment disorder, behavioral disorder, brain tumor, malingering, substance abuse, encephalopathy, medication reaction, dementia, hypothyroidism, degenerative neurologic disorder, lupus.... This is not meant to be all-inclusive list EKG interpreted by me (3pts min.)? @ -Not obtained X-rays interpreted by me (1pt min.)? @ -Not obtained CT interpreted by me (1pt min.)? @ -Not obtained U/S interpreted by me (1pt. min.)? @ -Not obtained What testing was considered but not performed? (CT, X-rays, U/S, labs)? Why? @ -None What meds were considered but not given? Why? @ -None Did you discuss the management of the patient with other professionals? @ -[place] with [facility] who advised that the patient does not meet criteria for inpatient psychiatric hospitalization. Advised anxiety medication such as hydroxyzine to help with the symptoms. Did you reconcile home meds? @ -No Was smoking cessation discussed for >3mins.? @ -No Was critical care preformed (if so, how long)? @ -No Were there social determinants of health that impacted care today? How? (Homelessness, low income, unemployed, alcoholism, drug addiction, transportation, low edu. Level, literacy, decrease access to med. care, alf, rehab)? @ -Drug addiction, contributing to worsening of his mental health problems. Was there de-escalation of care discussed even if they declined? (Discuss DNR or withdrawal of care, Hospice)? @ -No What co-morbidities impacted this encounter? (DM, HTN, Smoking, COPD, CAD, Cancer, CVA, Hep., AIDS, mental health diagnosis, sleep apnea, morbid obesity)? @ -Polysubstance abuse Was patient admitted / discharged? @ -Discharged. Patient's BAT was 0.0 and he was cleared for [facility] evaluation. Patient was evaluated by [facility] and they advised that he does not meet criteria for inpatient psychiatric hospitalization. Patient is requesting help with his anxiety to get him through until he can follow-up with [facility]. They advised something like hydroxyzine. Initial dose administered in the emergency department. Prescription was provided. Patient discharged home in stable condition. Case discussed with ED attending Dr. De La Paz. Return precautions reviewed in depth, the patient is instructed to return to the emergency department with any new, worsening, or concerning symptoms. Patient verbalized understanding. Undiagnosed new problem with uncertain prognosis? @ -None Drug Therapy requiring intensive monitoring for toxicity (Heparin, Nitro, Insulin, Cardizem)? @ -None Were any procedures done? @ -None Diagnosis/symptom? @ -Anxiety Acute, or Chronic, or Acute on Chronic? @ -Acute Uncomplicated (without systemic symptoms) or Complicated (systemic symptoms)? @ -Uncomplicated Side effects of treatment? @ -None Exacerbation, Progression, or Severe Exacerbation] @ -Not applicable Poses a threat to life or bodily function? @ -No Disposition Clinical Impression: Acute anxiety Disposition: HOME SELF-CARE Instructions (If sedation given, give patient instructions): Anxiety (ED) Additional Instructions: Return to the emergency department with any new, worsening, or concerning symptoms. Take the hydroxyzine as 1 to 2 tablets up to every 4-6 hours to help with anxiety. Follow-up with [facility]. Prescriptions: hydrOXYzine HCL [Atarax] 50 - 100 mg PO Q4-6H PRN #20 tablet PRN Reason: Anxiety Is patient prescribed a controlled substance at d/c from ED?: No Referrals: Bird Sosa MD [Primary Care Provider] - 1-2 days
[2024-05-06] MEDS: hydrOXYzine HCL 50 MG/ML 1 ML VIAL IM STA (10:26)
[2024-05-06 11:38] VITALS: BP 134/83; PULSE 78; RESP 16; TEMP 98
== END 2024-05-06 11:38 | disposition home or self-care (01) ==
LOC: EC 06:47
DX: F41.9 Anxiety disorder, unspecified (principal); F17.200 Nicotine dependence, unspecified, uncomplicated
CPT/HCPCS: 82075; 99284; 96372; J3410

== ENCOUNTER 2024-06-14 09:44 | Emergency (ER) | payer OTHER ==
[2024-06-14 09:48] VITALS: TEMP 98
--- NOTE | 2024-06-14 10:22 | ED ---
General Adult HPI - General Chief complaint: Shortness of Breath Stated complaint: SOB Time Seen by Provider: 06/14/24 10:21 Source: patient, RN notes reviewed Mode of arrival: ambulatory Limitations: no limitations - History of Present Illness Initial comments: 54-year-old male presented to the ER with a chief complaint of shortness of breath. Patient tested positive for COVID on 06-09-2024. Patient reports since then he has been feeling shortness of breath, coughing and a pounding headache. He is taking [id number] Tylenol with mild relief. Patient does occasionally vape. He denies any fevers, chest pain, peripheral edema, nausea, vomiting, abdominal pain. Patient does report diarrhea but is having a normal appetite. Patient has no other complaints. - Related Data Home Medications Medication Instructions Recorded Confirmed Buprenorphine HCl/Naloxone HCl 2 film SL DAILY 11/06/23 06/14/24 [Suboxone 8 mg-2 mg Sl Film] Allergies Allergy/AdvReac Type Severity Reaction Status Date / Time No Known Allergies Allergy Verified 06/14/24 12:10 Review of Systems ROS Statement: Those systems with pertinent positive or pertinent negative responses have been documented in the HPI. ROS Other: All systems not noted in ROS Statement are negative. Past Medical History Past Medical History: No Reported History History of Any Multi-Drug Resistant Organisms: None Reported Past Surgical History: Orthopedic Surgery Additional Past Surgical History / Comment(s): Hx R arm surgery Past Anesthesia/Blood Transfusion Reactions: No Reported Reaction Past Psychological History: No Psychological Hx Reported Smoking Status: Current every day smoker Past Drug Use History: Methamphetamine, Prescription Drug Abuse - Past Family History Mother Family Medical History: Cancer Additional Family Medical History / Comment(s): Hx Breast cancer General Exam Limitations: no limitations General appearance: alert, in no apparent distress Respiratory exam: Present: normal lung sounds bilaterally. Absent: respiratory distress, wheezes, rales, rhonchi, stridor Cardiovascular Exam: Present: regular rate, normal rhythm, normal heart sounds. Absent: systolic murmur, diastolic murmur, rubs, gallop, clicks GI/Abdominal exam: Present: soft, normal bowel sounds. Absent: distended, tenderness, guarding, rebound, rigid Extremities exam: Present: normal inspection, full ROM, normal capillary refill. Absent: tenderness, pedal edema, joint swelling, calf tenderness Neurological exam: Present: alert, oriented X3, CN II-XII intact Skin exam: Present: warm, dry, intact, normal color. Absent: rash Course Vital Signs 06/14/24 06/14/24 06/14/24 09:45 10:31 12:28 Temperature 98.0 F Pulse Rate 107 H 90 Respiratory 18 18 16 Rate Blood Pressure 120/78 160/85 O2 Sat by Pulse 98 98 Oximetry Medical Decision Making - Medical Decision Making Was pt. sent in by a medical professional or institution (, [place], BLOOD TESTER, urgent care, hospital, or jail...) When possible be specific @ -No Did you speak to anyone other than the patient for history (EMS, parent, family, police, friend...)? What history was obtained from this source @ -No Did you review nursing and triage notes (agree or disagree)? Why? @ -I reviewed and agree with nursing and triage notes Were old charts reviewed (outside hosp., previous admission, EMS record, old EKG, old radiological studies, urgent care reports/EKG's, jail records)? Report findings @ -No old charts were reviewed Differential Diagnosis (chest pain, altered mental status, abdominal pain women, abdominal pain men, vaginal bleeding, weakness, fever, dyspnea, syncope, headache, dizziness, GI bleed, back pain, seizure, CVA, palpatations, mental health, musculoskeletal)? @ -COVID, RSV, influenza, viral sinusitis, pneumonia this list is not meant to be all-inclusive EKG interpreted by me (3pts min.). @ -[None X-rays interpreted by me (1pt min.). @ -Chest x-ray interpreted by me negative for acute cardiopulmonary process. CT interpreted by me (1pt min.). @ -None done U/S interpreted by me (1pt. min.). @ -None done What testing was considered but not performed or refused? (CT, X-rays, U/S, labs)? Why? @ -None What meds were considered but not given or refused? Why? @ -None Did you discuss the management of the patient with other professionals (professionals i.e. [place] Mor[facility], BLOOD TESTER, lab, RT, psych nurse, social sciences chair, automatic clipper, teacher, strike warfare/missile systems officer, complex case manager)? Give summary @ -No Was smoking cessation discussed for >3mins.? @ -I discussed smoking cessation for greater than 3 minutes. The risk of smoking were discussed with the patient including but not limited to risks of cancer, stroke, coronary artery disease and COPD. Also discussed with patient were multiple methods of quitting smoking. Lastly we discussed the financial cost of smoking. Was critical care preformed (if so, how long)? @ -No Were there social determinants of health that impacted care today? How? ([place]ke elessness, low income, unemployed, alcoholism, drug addiction, transportation, low edu. Level, literacy, decrease access to med. care, group home, rehab)? @ -No Was there de-escalation of care discussed even if they declined (Discuss DNR or withdrawal of care, Hospice)? DNR status @ -No What co-morbidities impacted this encounter? (DM, HTN, Smoking, COPD, CAD, Cancer, CVA, ARF, Chemo, Hep., AIDS, mental health diagnosis, sleep apnea, morbid obesity)? @ -None Was patient admitted / discharged? Hospital course, mention meds given and route, prescriptions, significant lab abnormalities, going to OR and other pertinent info. @ -Discharge. 54-year-old male presented to ER with a chief complaint of shortness of breath. Patient recently diagnosed with COVID-19. History and physical exam completed. Vitals within normal limits. Patient in no signs of acute distress and sleeping upon examination. Exam unremarkable. Patient agreeable for chest x-ray. Chest x-ray interpreted by me negative for acute cardiopulmonary process. Patient received p.o. Tylenol for symptom control in the ER. Upon reevaluation, patient resting comfortably exam room in no signs of acute distress. Results discussed with patient, all questions answered. Symptoms believed to be viral in nature due to coronavirus. Conservative treatment options discussed. Patient stable for discharge at this time. Advise close follow-up with PCP. Strict return parameters discussed. Patient discharged stable condition. Patient verbally expressed understanding agree with care plan. Case discussed with ED attending, Dr. Robertson. Undiagnosed new problem with uncertain prognosis? @ -No Drug Therapy requiring intensive monitoring for toxicity (Heparin, Nitro, Insulin, Cardizem)? @ -No Were any procedures done? @ -No Diagnosis/symptom? @ -Viral illness/COVID-19/acute viral sinusitis Acute, or Chronic, or Acute on Chronic? @ -Acute Uncomplicated (without systemic symptoms) or Complicated (systemic symptoms)? @ -Uncomplicated Side effects of treatment? @ -No Exacerbation, Progression, or Severe Exacerbation? @ -No Poses a threat to life or bodily function? How? (Chest pain, [place], [place], pneumonia, PE, COPD, DKA, ARF, appy, cholecystitis, CVA, Diverticulitis, Homicidal, Suicidal, threat to staff... and all critical care pts) @ -No - Radiology Data Radiology results: report reviewed, image reviewed Disposition Clinical Impression: Acute viral sinusitis, COVID-19 Disposition: HOME SELF-CARE Condition: Stable Instructions (If sedation given, give patient instructions): Fever in Adults (ED) Additional Instructions: Please follow-up with PCP. You may take [id number] Tylenol and Motrin for fever and symptoms control. Return to the ER for any new or worsening concerns. Is patient prescribed a controlled substance at d/c from ED?: No Referrals: None,Stated [Primary Care Provider] - 1-2 days Forms: Area PCPs Time of Disposition: 12:27
[2024-06-14] MEDS: ACETAMINOPHEN TAB 500 MG TAB PO STA (10:24)
--- NOTE | 2024-06-14 11:07 | XR ---
EXAMINATION TYPE: XR chest 2V DATE OF EXAM: 06/14/2024 10:31 AM CLINICAL INDICATION: Male, 54 years old with history of cough; [facility] COMPARISON: None TECHNIQUE: XR chest 2V Frontal view of the chest. FINDINGS: Lungs/Pleura: There is no evidence of pleural effusion, focal consolidation, or pneumothorax. Pulmonary vascularity: Unremarkable. Heart/mediastinum: Cardiomediastinal silhouette is unremarkable. Musculoskeletal: No acute osseous pathology. IMPRESSION: No acute cardiopulmonary disease/process.
[2024-06-14 12:29] VITALS: BP 160/85; PULSE 90; RESP 16
== END 2024-06-14 12:31 | disposition home or self-care (01) ==
LOC: EC 09:44
DX: R06.02 Shortness of breath
CPT/HCPCS: 71046; 99284